=== PATIENT | female | born 1980 ===

== ENCOUNTER → 2018-08-23 21:52 | Outpatient (REF) | payer OTHER, SELFPAY ==
[2018-08-24 01:42] LABS: Free T4, Direct Thyroxine 1.76 ng/dL (0.78-2.19)
[2018-08-24 01:56] LABS: Thyroid Stimulating Hormone 1.81 uIU/mL (0.47-4.68)
[2018-08-25 14:52] LABS: Triiodothyronine T3 Total 83 ng/dL (76-181)
== END ==
LOC: LAB 21:52
PROVIDERS: Visit Provider Family Medicine
DX: E03.9 Hypothyroidism, unspecified (principal)
CPT/HCPCS: 36415; 84439; 84443; 84480